=== PATIENT | female | born 1990 ===

== ENCOUNTER 2024-01-22 13:17 | Emergency (ER) | payer SELFPAY ==
[~2024-01-22] VITALS: Ht 165.1 cm; Wt 56.8 kg
[2024-01-22] MEDS ORDERED: Ondansetron 4 MG/2 ML VIAL IV ONE (14:00)
[2024-01-22] MEDS ORDERED: Morphine 4 MG/ML VIAL IV ONE (14:00)
[2024-01-22] MEDS ORDERED: NS 1,000 ML IV ONE ×2 (14:00→16:15)
[2024-01-22 14:10] LABS: BASO % 0.2 % (0.0-2.0); GRAN # 9.6 K/mm3 (1.4-6.5); GRAN % 81.7 % (42.2-75.2); HEMOGLOBIN 10.4 g/dl (12.5-16.0); LYMPH # 1.7 K/mm3 (1.2-3.4); LYMPH % 14.3 % (20.0-51.0); MEAN CELL VOLUME 84 fl (80.0-100.0); MEAN CORPUSCULAR HEMOGLOBIN 27 pg (27-31); MEAN CORPUSCULAR HGB CONC 32 g/dl (33.0-37.0); MEAN PLATELET VOLUME 9.1 fl (7.4-10.4); MONO # 0.4 K/mm3 (0.1-0.6); MONO % 3.2 % (1.7-9.3); PLATELET COUNT 341 K/mm3 (130-400); REDCELL DISTRIBUTION WIDTH-CV 14.1 % (11.5-14.5)
[2024-01-22 14:12] LABS: HEMATOCRIT 32.6 % (37.0-47.0)
[2024-01-22 14:26] LABS: ALBUMIN 3.2 g/dL (3.5-5.0); BILIRUBIN,TOTAL 0.4 mg/dL (0.2-1.2); C-REACTIVE PROTEIN 29.22 mg/dL (0.00-0.50); CALCIUM 9.6 mg/dL (8.4-10.2); CREATININE, serum 0.76 mg/dL (0.57-1.11); POTASSIUM 3.3 mEq/L (3.5-4.5)
[2024-01-22 14:43] LABS: COLLECTION METHOD CLEAN CATCH
[2024-01-22 14:52] LABS: PH 5.5 (5.0-8.5); URINE APPEARANCE CLEAR (CLEAR/HAZY); URINE BLOOD 2+ (NEGATIVE); URINE COLOR YELLOW (YELLOW); URINE GLUCOSE NEGATIVE (NEGATIVE); URINE KETONE NEGATIVE (NEGATIVE); URINE NITRATE NEGATIVE (NEGATIVE); URINE PROTEIN(semi-quant) 1+ (NEGATIVE); URINE UROBILINOGEN 0.2 E.U/dL (0.2-1.0)
[2024-01-22] MEDS ORDERED: NS 100 ML IV SCH (14:56)
[2024-01-22] MEDS ORDERED: Iohexol 300 - 100 ML VIAL IV ONE (14:57)
[2024-01-22] MEDS ORDERED: cefTRIAXone 2 G in Water For Injection,Sterile 20 ML IV ONE (16:30)
[2024-01-22 17:08] LABS: TRICYCLIC ANTIDEPRESS URINE NEGATIVE (NEGATIVE)
[2024-01-22] MEDS ORDERED: diphenhydrAMINE 50 MG/ML 1 ML VIAL IV ONE (17:45)
[2024-01-22] MEDS ORDERED: metroNIDAZOLE 100 ML IV ONE (18:15)
[2024-01-22] MEDS ORDERED: Acetaminophen 500 MG TAB PO ONE (19:30)
[2024-01-23] MEDS ORDERED: metroNIDAZOLE 100 ML IV ONE (02:15)
[2024-01-23] MEDS ORDERED: NS 1,000 ML IV ONE (02:15)
[2024-01-23] MEDS ORDERED: Acetaminophen 500 MG TAB PO SCH (06:45)
[2024-01-23 07:41] VITALS: BP 108/63; PULSE 88; TEMP 100.8
== END 2024-01-23 07:50 | disposition short-term general hospital (02) ==
LOC: COL.ER 13:17
PROVIDERS: Nurse Practitioner
DX: G06.2 Extradural and subdural abscess, unspecified (principal); K68.12 Psoas muscle abscess; M46.40 Discitis, unspecified, site unspecified
CPT/HCPCS: J0696; J1200; J1836; J2270; J2405; J3370; J7030; J7040; J7050; Q9967